=== PATIENT | male | born 1990 | race Caucasian/White ===

== ENCOUNTER 2023-07-03 08:23 | Emergency (ER) | payer OTHER ==
[~2023-07-03] VITALS: Ht 182.8 cm; Wt 102.1 kg
[~2023-07-03 08:23] MED LIST: ATARAX25 MG PO; LAMICTAL XR100 MG PO; XANAX1 MG PO
== END 2023-07-03 13:08 | disposition left against medical advice (07) ==
LOC: ED 08:23
DX: R41.82 Altered mental status, unspecified (principal); F31.9 Bipolar disorder, unspecified; F14.90 Cocaine use, unspecified, uncomplicated; Z88.8 Allergy status to other drugs, medicaments and biological substances; Z98.890 Other specified postprocedural states